=== PATIENT | female | born 2000 | race African-American/Black ===

== ENCOUNTER 2023-12-09 08:30 | Inpatient (IN) ==
[2023-12-09 08:47] VITALS: BMI 32.4
[2023-12-09 09:00] LABS: BILIRUBIN,URINE NEGATIVE (NEGATIVE); BLOOD/HEMOGLOBIN,URINE NEGATIVE (NEGATIVE); GLUCOSE, URINE NEGATIVE (NEGATIVE); KETONES,URINE NEGATIVE (NEGATIVE); LEUKOCYTE ESTERASE ,URINE NEGATIVE (NEGATIVE); NITRITES,URINE NEGATIVE (NEGATIVE); PROTEIN,URINE NEGATIVE (NEGATIVE); UROBILINOGEN,URINE 1+ (NORMAL)
[2023-12-09 09:03] LABS: APPEARANCE,URINE CLEAR (CLEAR); COLOR,URINE YELLOW (YELLOW)
[2023-12-09 09:09] LABS: AMNISURE ROM TEST THERE IS A RUPTURE (NO RUPTURE)
[2023-12-09] MEDS ORDERED: NUBAIN INJ 20 MG AMP IVP PRN (09:15)
[2023-12-09] MEDS ORDERED: REGLAN INJ 10 MG VIAL IVP PRN (09:15)
[2023-12-09] MEDS ORDERED: ZOFRAN INJ 4 MG VIAL IVP PRN (09:15)
[2023-12-09] MEDS: OXYTOCIN 20 UNIT/1,000 ML-NS 20 UNIT/1,000 ML PLAST..BAG IV PRN (09:30)
[2023-12-09] MEDS: LR 1,000 ML IV 1,000 ML IV ONE ×2 (10:00→18:09)
[2023-12-09 10:26] LABS: BASOPHILS % (AUTO) 0.5 % (0.2-1.0); EOSINOPHILS # (AUTO) 0.1 x10^3/uL (0.0-0.2); EOSINOPHILS % (AUTO) 1.4 % (0.9-2.9); HEMATOCRIT 34.6 % (36.0-47.0); HEMOGLOBIN 11.7 g/dL (12.0-16.0); LYMPHOCYTES # (AUTO) 1.8 X10^3/uL (1.3-2.9); LYMPHOCYTES % (AUTO) 45.1 % (21.0-51.0); MEAN CORPUSCULAR HEMOGLOBIN 27.8 pg (27.0-34.0); MEAN CORPUSCULAR HGB CONC 33.9 g/dL (33.0-35.0); MEAN PLATELET VOLUME 8.6 fL (7.4-11.0); MONOCYTES # (AUTO) 0.4 x10^3/uL (0.3-0.8); MONOCYTES % (AUTO) 8.7 % (0.0-13.0); NEUTROPHILS # (AUTO) 1.8 x10^3/uL (2.2-4.8); NEUTROPHILS % (AUTO) 44.3 % (42.0-75.0); PLATELET COUNT 215 X10^3/uL (150.0-450.0); RED BLOOD COUNT 4.22 X10^6/uL (3.5-5.4)
[2023-12-09 10:32] LABS: BLOOD UREA NITROGEN 8 mg/dL (7-18); CALCIUM 8.8 mg/dL (8.5-10.1); CHLORIDE 103 mmol/L (98-107); CREATININE 0.74 mg/dL (0.55-1.02); GLUCOSE 74 mg/dL (65-99); POTASSIUM 3.7 mmol/L (3.5-5.1); SODIUM 136 mmol/L (136-145); eGFR NON BLACK RACES > 60 (>60)
[2023-12-09] MEDS: D5 1/2 NS 1,000 ML 1,000 ML IV SCH (10:34)
[2023-12-09] MEDS: FENTANYL VIAL INJ 100 mcg ONE (11:00)
[2023-12-09] MEDS: NAROPIN EPIDURAL 0.2% 100 ML ONE (11:00)
[2023-12-09] MEDS: EPHEDRINE SULFATE INJ ONE (11:30)
--- NOTE | 2023-12-09 14:43 | DR.OB ---
OB QUICK NOTE Assessment/Plan (1) Active labor: Assessment/Plan: L&D 12/09/23 at 12:20pm S-No complaint. s/p epidural. O-Afebrile,VSS [id number] with good LTV, +accel, no decel. CTX=q 2-3 min. mod. by palpation CVX=2-3cm/80%/-1/VTX IUPC and FSE placed. A-IUP at 39 5/7 weeks with SROM P-Cont. pitocin augmentation Anticipate
--- NOTE | 2023-12-09 14:46 | DR.OB ---
OB QUICK NOTE Assessment/Plan (1) Active labor: Assessment/Plan: L&D 12/09/23 at 2:30pm Pitocin=8mu/min. S-No complaint. O-Afebrile,VSE FOS=[id number] with good LTV, +accel, no decel. CTX=q 2-3 min., about 45-55mmHg CVX=6cm/90%/0/VTX A-IUP at 39 5/7 weeks with SROM P-Cont. pitocin augmentation Anticipate
[2023-12-09] MEDS: BETADINE SOLN ONE (15:00)
[2023-12-09] MEDS: PITOCIN IVP ONE (15:06)
--- NOTE | 2023-12-09 15:12 | DR.OB ---
OB QUICK NOTE Assessment/Plan (1) Active labor: Assessment/Plan: Delivery Note DOCTOR OF MEDICINE 12/09/23 at 15:01 Patient complete and pushing. Head delivered over intact perineum. Nuchal cord x 1 reduced. Nose and mouth bulb suctioned. Body delivered over intact perineum. Compound presentation with right hand to face. Cord clamped x 2 and cut. handed to attendants. Cord sent for gases. Placenta delivered spontaneously / intact / 3 vessel cord. No CVX / vaginal / perineal tears noted. Viable male infant delivered by , VTX/OA, wt=6'1" and 8/9, stable to NBN. Mother stable to RR. UVV=[id number].
[2023-12-09] MEDS ORDERED: AMBIEN PO PRN (15:29)
[2023-12-09] MEDS ORDERED: DERMOPLAST PAIN RELIEF SPRAY TOP PRN (15:29)
[2023-12-09] MEDS ORDERED: MILK OF MAGNESIA PO PRN (15:29)
[2023-12-09] MEDS ORDERED: MOTRIN TAB 800 MG PO PRN (15:29)
[2023-12-09] MEDS: OXYTOCIN 20 UNIT/1,000 ML-NS 20 UNIT/1,000 ML PLAST..BAG IV SCH (18:10)
[2023-12-09] MEDS: MOTRIN TAB 800 MG PO PRN (23:24)
[2023-12-10 05:22] LABS: HEMATOCRIT 30.2 % (36.0-47.0); HEMOGLOBIN 10.4 g/dL (12.0-16.0)
[2023-12-10] MEDS: ADACEL or BOOSTRIX TDaP VACCINE IM ONE (08:01)
[2023-12-10 08:04] VITALS: RESP 21
[2023-12-10] MEDS: PROTONIX TAB 40 MG PO SCH (09:01)
[2023-12-10] MEDS: DEPO-PROVERA CONTRACEPTIVE INJ IM ONE (09:01)
[2023-12-10] MEDS: PRENATAL PLUS PO SCH (09:01)
[2023-12-10] MEDS: CELEXA PO SCH (09:01)
[2023-12-10 16:14] VITALS: BP 118/82; PULSE 70; TEMP 98.4; O2SAT 100
== END 2023-12-10 17:15 | disposition home or self-care (01) | DRG 807 ==
LOC: ER 08:30 → LD 09:07 → MED/SURG 16:21
PROVIDERS: ADMIT Specialist; ATTEND Specialist
DX: Z37.0 Single live birth; O99.343 Other mental disorders complicating pregnancy, third trimester; Z3A.39 39 weeks gestation of pregnancy; O47.1 False labor at or after 37 completed weeks of gestation; K21.9 Gastro-esophageal reflux disease without esophagitis; F41.8 Other specified anxiety disorders; O99.613 Diseases of the digestive system complicating pregnancy, third trimester